=== PATIENT | male | born 1985 | race Two or more races ===

== ENCOUNTER 2023-11-17 00:14 | Emergency (ER) | payer MEDICAID ==
[~2023-11-17] VITALS: Ht 188 cm; Wt 89.0 kg
[2023-11-17 00:52] VITALS: O2SAT 98
[2023-11-17] MEDS: KETOROLAC 15MG/ML VIAL IM ONE (01:15)
[2023-11-17 01:30] VITALS: BP 134/77; PULSE 67; RESP 20; TEMP 98.6
[2023-11-17 01:36] LABS: CLARITY URINE CLEAR (CLEAR); COLOR URINE YELLOW (YELLOW); GLUCOSE URINE NEGATIVE (NEGATIVE); KETONES URINE NEGATIVE (NEGATIVE); LEUKOCYTE ESTERASE URINE NEGATIVE (NEGATIVE); NITRITE URINE NEGATIVE (NEGATIVE); OCCULT BLOOD URINE NEGATIVE (NEGATIVE); PROTEIN URINE NEGATIVE (NEGATIVE); SPECIFIC GRAVITY URINE 1.014 (1.005-1.030)
[2023-11-17] MEDS ORDERED: ACET-2708 MT (01:39)
[2023-11-17] MEDS ORDERED: LIDO1ADH7 TP (01:39)
[2023-11-17] MEDS ORDERED: CYCL7.5T25 MT (01:39)
== END 2023-11-17 01:45 | disposition home or self-care (01) ==
LOC: ER 00:14
DX: M25.511 Pain in right shoulder (principal); M54.2 Cervicalgia; M54.9 Dorsalgia, unspecified
CPT/HCPCS: 99283; 81003; 96372; J1885